=== PATIENT | male | born 1930 | race Caucasian/White ===

== ENCOUNTER → 2016-10-31 | Outpatient (CLI) | payer MEDICARE | END | disposition home or self-care (01) | LOC: PCVCCLINIC 15:48 | PROVIDERS: ATTEND Internal Medicine Cardiovascular Disease | DX: I25.10 Atherosclerotic heart disease of native coronary artery without angina pectoris (principal); I77.89 Other specified disorders of arteries and arterioles; I73.9 Peripheral vascular disease, unspecified; I25.5 Ischemic cardiomyopathy; E78.00 Pure hypercholesterolemia, unspecified; E78.5 Hyperlipidemia, unspecified; Z95.1 Presence of aortocoronary bypass graft; Z86.73 Personal history of transient ischemic attack (TIA), and cerebral infarction without residual deficits; Z87.891 Personal history of nicotine dependence; Z88.8 Allergy status to other drugs, medicaments and biological substances | CPT/HCPCS: 80061; 93005; G0463 ==

== ENCOUNTER → 2017-01-29 | Outpatient (CLI) | payer MEDICARE ==
[~2017-01-29] MED LIST: REGADENOSON 0.4 MG/5 ML DISP.SYRIN. IV ONE
--- NOTE | 2017-01-30 10:55 | PCVCIMAG ---
APPROVED REPORT Exam: Nuclear Stress Test Indication: CAD Patient Location: Out Patient Stress Nurse: Dayana Hernandez RN, Irais Medley RN ND Tech:Daniel Goel NMTCB Ht: 5 ft 6 in Wt: 129 lbs BSA: 1.66 m2 HR: 48 bpm BP: 191/74 mmHg BMI: 20.8 Rhythm: SB Medical History Medical History: Age, Hyperlipidemia, PVD, Former Smoker Medications: Amlodipine, Plavix, Proscar, Keppra, Rosuvastatin Allergies: Compazine Previous Cardiac Procedures: CABG 1993, PCI 2006 Exercise History: Sedentary NM EXAM: Myocardial Perfusion REST/STRESS Imaging Protocol: Rest Tc-99m/Stress Tc-99m 1 day Resting Data Rest SPECT myocardial perfusion imaging was performed in supine position 45 minutes following the intravenous injection of 8.5 mCi of Tc-99m Sestamibi. Time of rest injection: 08 Date: 01/29/2017 Pharmacologic Stress Pharmacologic stress test was performed by injecting Regadenoson 0.4 mg IV push followed by the intravenous injection of 25.7 mCi of Tc-99m Sestamibi. Time of stress injection: 1045 Date: 01/29/2017 The images were gated to evaluate regional wall motion and calculate left ventricular ejection fraction. Study Quality Study: Good Study Data Post stress, the left ventricular ejection was 49%.. SSS: 7 SRS: 5 SDS: 5 TID = 1.15. 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 Medium sized area of mild reversible ischemia involving the mid/apical inferolateral left ventricle consistent with a circumflex distribution. Wall Motion Minimally decreased left ventricular systolic function. 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 Medium sized area of mild reversible ischemia involving the mid/apical inferolateral left ventricle consistent with a circumflex distribution. Post stress, the left ventricular ejection was 49%.. Findings are similar to February 2014. Interpreted by: Damion Castellanos MD Electronically Approved: 01/30/2017 07:50:05 Stress Test Details Stress Test: Pharmacologic stress testing performed using 0.4 mg of regadenoson per 5 mL given IV over 10 seconds. Reason for pharmacologic stress test: physical limitation. HR Resting HR: 48 bpmMax Heart Rate (APMHR): 133 bpm Max HR Achieved: 78 bpmTarget HR (85% APMHR): 113 bpm % of APMHR: 58 Recovery HR: 70 bpm BP Resting BP: 191/74 mmHg Max BP: 187/74 mmHg ECG Resting ECG: Sinus Bradycardia Stress ECG: Sinus Rhythm, LBBB Recovery ECG: Sinus Rhythm, LBBB Clinical Reason for Termination: Completed protocol Stress Symptoms: Dyspnea, Lightheaded Symptoms resolved with caffeine. Nurse Comments Pt did not tolerate camera for images well, c/o back discomfort afterwards. Tylenol given and massage of back. Stress ECG Conclusion ECG: Non-ischemic <Conclusion> ECG: Non-ischemic
== END | disposition home or self-care (01) ==
LOC: PCVCIMAG 08:48
PROVIDERS: ATTEND Internal Medicine Cardiovascular Disease
DX: I44.7 Left bundle-branch block, unspecified (principal); I65.23 Occlusion and stenosis of bilateral carotid arteries; R00.1 Bradycardia, unspecified; E78.5 Hyperlipidemia, unspecified; K52.9 Noninfective gastroenteritis and colitis, unspecified; I73.9 Peripheral vascular disease, unspecified; Z87.891 Personal history of nicotine dependence; Z79.899 Other long term (current) drug therapy; Z88.8 Allergy status to other drugs, medicaments and biological substances; Z95.1 Presence of aortocoronary bypass graft; Z86.73 Personal history of transient ischemic attack (TIA), and cerebral infarction without residual deficits
CPT/HCPCS: 78452; 93017; 93880; A9500; J2785

== ENCOUNTER → 2017-08-02 | Outpatient (CLI) | payer MEDICARE | END | disposition home or self-care (01) | LOC: PCVCCLINIC 12:22 | DX: I25.10 Atherosclerotic heart disease of native coronary artery without angina pectoris (principal); I10 Essential (primary) hypertension; R09.89 Other specified symptoms and signs involving the circulatory and respiratory systems; G45.9 Transient cerebral ischemic attack, unspecified; I73.9 Peripheral vascular disease, unspecified; I25.5 Ischemic cardiomyopathy; E78.00 Pure hypercholesterolemia, unspecified; R94.31 Abnormal electrocardiogram [ECG] [EKG]; Z95.1 Presence of aortocoronary bypass graft; Z87.891 Personal history of nicotine dependence; Z79.899 Other long term (current) drug therapy | CPT/HCPCS: 80061; 93005; G0463 ==

== ENCOUNTER → 2018-02-04 | Outpatient (CLI) | payer MEDICARE ==
--- NOTE | 2018-02-04 15:16 | PCVCIMAG ---
EXAM: BILATERAL CAROTID DUPLEX INDICATION: Carotid Occlusive Disease. FINDINGS: Doppler Measurements (centimeters per second): RIGHT: Peak CCA-91, Peak ECA-175, Diastolic ICA-52, Peak ICA-279, ICA/CCA Ratio-3.1. LEFT: Peak CCA-94, Peak ECA-233, Diastolic ICA-24, Peak ICA-183, ICA/CCA Ratio-1.9. RIGHT CAROTID: The carotid bulb has moderate plaque. The proximal internal carotid artery shows 70% stenosis. The common carotid artery shows no significant stenosis. The external carotid artery shows 50% stenosis. LEFT CAROTID: The carotid bulb has mild plaque. The proximal internal carotid artery shows 50% stenosis. The common carotid artery shows no significant stenosis. The external carotid artery shows 70% stenosis. Antegrade flow in both vertebral arteries. IMPRESSION: 70% stenosis of the right internal carotid artery with moderate plaque. 50% stenosis of the left internal carotid artery with mild plaque. No change since 2017 study. LOC:[id number]
== END | disposition home or self-care (01) ==
LOC: PCVCIMAG 16:32
PROVIDERS: ATTEND Internal Medicine Cardiovascular Disease
DX: I65.23 Occlusion and stenosis of bilateral carotid arteries (principal); R09.89 Other specified symptoms and signs involving the circulatory and respiratory systems; I25.10 Atherosclerotic heart disease of native coronary artery without angina pectoris; I77.9 Disorder of arteries and arterioles, unspecified; I73.9 Peripheral vascular disease, unspecified; R07.9 Chest pain, unspecified; I25.5 Ischemic cardiomyopathy; I10 Essential (primary) hypertension; E78.00 Pure hypercholesterolemia, unspecified; R00.1 Bradycardia, unspecified; G31.84 Mild cognitive impairment of uncertain or unknown etiology; Z95.1 Presence of aortocoronary bypass graft; Z87.891 Personal history of nicotine dependence; Z79.899 Other long term (current) drug therapy
CPT/HCPCS: 80061; 93005; 93880; G0463

== ENCOUNTER → 2018-02-19 | Outpatient (CLI) | payer MEDICARE ==
--- NOTE | 2018-02-19 16:01 | PCVCIMAG ---
APPROVED REPORT Study performed: 02/19/2018 10:49:21 EXAM: Comprehensive 2D, Doppler, and color-flow Echocardiogram Patient Location: Echo lab Status: routine BSA: 1.69 HR: 46 bpmBP: 144/68 mmHg Rhythm: Bradycardia Other Information Study Quality: Adequate Indications Abnormal ECG CAD Chest Pain ischemic cardiomyopathy 2D Dimensions IVSd: 13.17 (7-11mm)LVOT Diam: 21.03 (18-24mm) LVDd: 52.37 mm PWd: 12.51 (7-11mm)Ascending Ao: 35.64 (22-36mm) LVDs: 42.88 (25-40mm) Left Atrium: 41.46 (27-40mm) Aortic Root: 30.80 mm LV Single Plane 4CH: 34.13 % LV Single Plane 2CH: 35.73 % Biplane EF: 36.7 % Volumes Left Atrial Volume (Systole) Single Plane 4CH: 63.65 mLSingle Plane 2CH: 68.69 mL LA ESV Index: 43.00 mL/m2 Aortic Valve AoV Peak Nikos.: 1.88 m/s AO Peak Gr.: 14.66 mmHgLVOT Max P.66 mmHg LVOT Max V: 0.81 m/s SERGIO Vmax: 1.51 cm2 AI Vmax: 3.38 m/s AI [place]: 1.32 m/s2 AI PHT: 744.93 ms Mitral Valve E/A Ratio: 0.8 MV Decel. Time: 267.93 ms MV E Max Nikos.: 0.67 m/s MV A Nikos.: 0.84 m/s MV PHT: 77.70 ms IVRT: 152.25 ms Pulmonary Valve PV Peak Nikos.: 0.99 m/sPV Peak Gr.: 3.96 mmHg Pulmonary Vein P Vein S: 0.30 m/sP Vein A: 0.26 m/s P Vein D: 0.38 m/sP Vein A Dur.: 179.9 msec P Vein S/D Ratio: 0.79 Tricuspid Valve TR Peak Nikos.: 2.56 m/s TR Peak Gr.: 26.22 mmHg Left Ventricle The left ventricle is normal size. Basal inferior akinesis with inferior and inferolateral hypokinesis. Mild concentric left ventricular hypertrophy. Left ventricular systolic function is mild to moderately decreased. LVEF is 40%. Grade I - abnormal relaxation pattern. Right Ventricle The right ventricle is normal size. The right ventricular systolic function is normal. Atria Left atrium is moderately dilated. Right atrium is mildly dilated. Aortic Valve The Aortic valve is sclerotic. Mild aortic regurgitation. There is no aortic valvular stenosis. Mitral Valve The mitral valve is normal in structure. Mild to moderate mitral regurgitation. No evidence of mitral valve stenosis. Tricuspid Valve The tricuspid valve is normal in structure. Mild tricuspid regurgitation with PAP of 33 mmHg. Pulmonic Valve The pulmonary valve is normal in structure. Moderate pulmonic regurgitation. Great Vessels The aortic root is normal in size. IVC is normal in size and collapses >50% with inspiration. Pericardium There is no pericardial effusion. There is no pleural effusion. <Conclusion> The left ventricle is normal size. Left ventricular systolic function is mild to moderately decreased. Basal inferior akinesis with inferior and inferolateral hypokinesis. LVEF is 40%. Grade I - abnormal relaxation pattern. Left atrium is moderately dilated. Right atrium is mildly dilated. Mild aortic regurgitation. Mild to moderate mitral regurgitation. Mild tricuspid regurgitation with PAP of 33 mmHg. Moderate pulmonic regurgitation. There is no pericardial effusion.
--- NOTE | 2018-02-24 18:24 | PCVCIMAG ---
APPROVED REPORT Imaging Protocol: Rest Tc-99m/Stress Tc-99m 1 day Study performed: 02/19/2018 12:57:34 Indication: CAD , Chest pain, Ischemic Cardiomyopathy Patient Location: Out-Patient Stress Nurse: Dayana Hernandez RN CT Tech:Soila Batres [facility] Ht: 5 ft 7 in Wt: 131 lbs BSA: 1.69 m2 HR: 63 bpm BP: 161/71 mmHg BMI: 20.5 Rhythm: Sinus Bradycardia Medical History Medical History: HTN, Hyperlipidemia, CAD, PVD, Former Smoker Medications: Amlodipine, Plavix, Proscar, Keppra, Losartan, Crestor Allergies: Compazine Cardiac Risk Factors: Age Pretest Chest Pain Characteristics: No chest pain Exercise History: Sedentary Physical Disabilities: Severe Kyphosis Resting Data Rest SPECT myocardial perfusion imaging was performed in supine position 45 minutes following the intravenous injection of 10.3 mCi of Tc-99m Sestamibi. Time of rest injection: 1230 Date: 02/19/2018 Administration Route: IV Administration Site: Right AC Pharmacologic Stress Pharmacologic stress test was performed by injecting Regadenoson 0.4 mg IV push over 10-15 seconds immediately followed by the intravenous injection of 31.4 mCi of Tc-99m Sestamibi. Time of stress injection: 1340 Date: 02/19/2018 Administration Route: IV Administration Site: Right AC Gated Stress SPECT was performed 45 minutes after stress injection. The images were gated to evaluate regional wall motion and calculate left ventricular ejection fraction. Stress Test Details Stress Test: Pharmacologic stress testing performed using 0.4 mg of regadenoson per 5 mL given IV over 10 seconds. Reason for pharmacologic stress test: Kyphosis, general debility. HRMax Heart Rate (APMHR): 132 bpm Resting HR: 63 bpmTarget HR (85% APMHR): 112 bpm Max HR Achieved: 85 bpm % of APMHR: 64 Recovery HR: 69 bpm BP Resting BP: 161/71 mmHg Recovery BP: 129/59 mmHg ECG Resting ECG: Sinus Bradycardia Stress ECG: Sinus Rhythm Recovery ECG: Sinus Rhythm Clinical Reason for Termination: Completed protocol, Completed protocol Stress Symptoms: Dyspnea Exercise duration: 0 min 55 sec Symptoms resolved with caffeine. Stress ECG Conclusion ECG: Non-ischemic Study Quality Study: Good Study Data Post stress, the left ventricular ejection was 32%.. SSS: 15 SRS: 17 SDS: 8 TID = 1.29. Perfusion Medium sized area of moderate reversible ischemia involving the mid/apical anterior left ventricle consistent with a left anterior descending distribution. Wall Motion Moderately severe decreased left ventricular systolic function. Nuclear Conclusion Medium sized area of moderate reversible ischemia involving the mid/apical anterior left ventricle consistent with a left anterior descending distribution has developed since January 2017. Post stress, the left ventricular ejection was 32%. Interpreted by: Damion Castellanos MD Electronically Approved: 02/19/2018 17:30:27 <Conclusion> ECG: Non-ischemic
== END | disposition home or self-care (01) ==
LOC: PCVCIMAG 12:29
PROVIDERS: ATTEND Internal Medicine Cardiovascular Disease
DX: I08.3 Combined rheumatic disorders of mitral, aortic and tricuspid valves (principal); I25.10 Atherosclerotic heart disease of native coronary artery without angina pectoris; I10 Essential (primary) hypertension; R00.1 Bradycardia, unspecified; I25.5 Ischemic cardiomyopathy
CPT/HCPCS: 78452; 93017; 93306; A9500; J2785

== ENCOUNTER → 2018-02-28 | Outpatient (CLI) | payer MEDICARE ==
[~2018-02-28] MED LIST changes: +ACETAMINOPHEN 500 MG TABLET PO ONE; +HEPARIN for ARTERIAL LINE 1,500 ML ONE; +HEPARIN for SUB-Q USE 5,000 UNIT/ML VIAL. SQ ONE; +IOHEXOL 350 MG/ML 100 ML VIAL. ONE; +IV NORMAL SALINE 1000ML BAG 1,000 ML ONE; +LIDOCAINE 1%/EPI 1:100,000 20 ML VIAL. ONE; +MIDAZOLAM HCL/PF 2 MG/2 ML VIAL. ONE; -REGADENOSON 0.4 MG/5 ML DISP.SYRIN. IV ONE; +diazePAM 5 MG TABLET ONE; +fentaNYL PF VIAL 100 MCG/2 ML VIAL ONE
--- NOTE | 2018-02-28 15:09 | PCVCINTER ---
EXAM: 1. AORTOGRAM AND BILATERAL ILIOFEMORAL ANGIOGRAM 2. BILATERAL RENAL ANGIOGRAPHY 3. LEFT RENAL ARTERY STENT PLACEMENT. INDICATION: Peripheral arterial disease. Coronary artery disease. Leg pain. Uncontrolled Hypertension. Renal atherosclerosis. No prior catheter based angiographic study is available. A full diagnostic angiogram study is performed today and the decision to intervene is based on this diagnostic study. PROCEDURE: Procedure and risks of angiography intervention is appropriate including limb loss stroke and were discussed with the patient's family and consent obtained. The patient's right groin was prepped in the normal sterile fashion. IV conscious sedation was used throughout procedure with appropriate monitoring from 11:00 AM through 12:00 PM. Ultrasound was used to interrogate the right groin and showed the right common femoral artery to be patent. A permanent spot film was obtained. Under ultrasound guidance access into the right common femoral artery was obtained and a 5 [place] sheath was placed. Through this a 5 [place] flush catheter was placed into the abdominal aorta at the level of the renal arteries and AP aortogram was performed. Catheter was positioned at the aortic bifurcation and bilateral iliofemoral angiogram obtained. Catheter was exchanged for a visceral catheter was placed into the right renal arteries and right renal angiograms obtained. Catheter was placed into the the left renal arteries and left renal angiograms were obtained. Patient was given 4500 units of heparin. Stent placement across the areas of high-grade stenosis in the left renal artery was carried out with a 6 x 15 [place] blue stent with subsequent dilatation to 6.[address] Min then joined the procedure and he performed coronary angiography. Please see his separate dictation for full details. Catheters and wires removed. Sheath was removed and hemostasis obtained using the FISH device. No immediate complications. FINDINGS: Aortogram: There is one right and one left renal artery. Moderate atheromatous and calcific changes infrarenal abdominal aorta without significant stenosis. Iliofemoral angiography: The right and left common iliac arteries show moderate plaque without flow-limiting stenosis. Both internal iliac arteries show mild stenoses. The right and left external iliac arteries are patent. Moderate plaque in the right and left common femoral arteries without critical stenosis. The right and left profunda femoral arteries and visualized upper superficial femoral arteries maintaining satisfactory patency. Right renal artery: Minimal plaque proximal vessel does not cause significant stenosis. Left renal artery: Moderate plaque proximal vessel causes 90% stenosis. No branch vessel stenosis. Left renal artery: Following procedure as above vessel shows good patency. IMPRESSION: 90% left renal artery stenosis was treated with stent placement with good patency restored. No flow limiting aortoiliac or iliofemoral stenosis seen. LOC:[id number]
--- NOTE | 2018-03-18 17:06 | PCVCINTER ---
APPROVED REPORT Study performed: 02/28/2018 11:50:00 Patient Details Patient Status: Out-Patient Room #: 2 The patient is a 87 year-old Male Event Personnel Pako Posadas MD, Alexis Granados RT(R), Richie Reyes RN, Marine Jimenez RT(R)() Risk Factors Arterial HypertensionDysplipidemia (Type: 1), Cerebrovascular DiseasePeripheral Vascular Disease, Hypercholesterolemia, Tobacco History (Former) Previous Procedures/Diagnoses Previous CABGPrevious PCI, Previous CHF, CAD, CHF, Cerebrovascular disease, Hypertension, Arrhythmias - Sinus Node->Sinus bradycardia Procedure Narrative The patient was brought electively to the Cardiac Catheterization Laboratory and was prepped and draped in a sterile manner. The right coronary system was accessed and visualized with a JR4 catheter. The left coronary system was accessed and visualized with a JL4 catheter. An aortogram of the ascending aorta was performed. Closure device was deployed with a 6 Fr FISH. Hemostasis was obtained with manual pressure following sheath removal without any complications. The patient tolerated the procedure well and there were no complications associated with the procedure. There was no hematoma. Hemodynamics The aortic pressure is 141/43 mmHg with a mean of mmHg. Conclusion #1 supravalvular aortogram revealing normal caliber aorta with 1+ aortic insufficiency. Appears to be a patent vein graft although the proximal aorta #2 small left main giving rise to LAD within occludes. Only significant filling is a small septal roll tension tester circumflex essentially occluded proximally #3 dominant right coronary artery occluded #4 SVG to an OM is widely patent with mild irregularities moderate size OM system is filled briskly. #5 the CUELLAR to LAD is intact provides some brisk filling of the LAD with mild disease and then some collateral filling to the inferior wall is noted #6 SVG to the PDA is occluded Recommendations and plan would continue aggressive risk factor modification. There is no indication for any coronary intervention. Close follow-up will be arranged. Stable angina certainly could be expected
== END | disposition home or self-care (01) ==
LOC: PCVCINTER 09:55
PROVIDERS: ATTEND Internal Medicine Cardiovascular Disease
DX: I70.1 Atherosclerosis of renal artery (principal); I35.1 Nonrheumatic aortic (valve) insufficiency; I25.10 Atherosclerotic heart disease of native coronary artery without angina pectoris; I70.0 Atherosclerosis of aorta; I70.293 Other atherosclerosis of native arteries of extremities, bilateral legs; I11.0 Hypertensive heart disease with heart failure; I50.9 Heart failure, unspecified; N40.0 Benign prostatic hyperplasia without lower urinary tract symptoms; Z95.1 Presence of aortocoronary bypass graft; Z87.891 Personal history of nicotine dependence; Z85.038 Personal history of other malignant neoplasm of large intestine; Z86.73 Personal history of transient ischemic attack (TIA), and cerebral infarction without residual deficits; Z90.49 Acquired absence of other specified parts of digestive tract; Z98.890 Other specified postprocedural states; Z82.3 Family history of stroke; Z88.8 Allergy status to other drugs, medicaments and biological substances; Z79.899 Other long term (current) drug therapy
CPT/HCPCS: 36252; 37236; 75630; 76937; 93455; 93567; 99152; 99153; C1725; C1751; C1760; C1769; C1876; C1887; C1894; J0690; J1644; J2250; J3010; J3490; J7030; Q9967; 93458

== ENCOUNTER → 2018-06-23 | Outpatient (CLI) | payer MEDICARE ==
--- NOTE | 2018-06-23 09:37 | PCVCIMAG ---
EXAM: BILATERAL RENAL ULTRASOUND AND BILATERAL RENAL DUPLEX INDICATION: Hypertension. Previous left renal artery stent. FINDINGS: Right kidney: Length measures 10.0 cm. No hydronephrosis or extensive renal scarring. Right renal duplex: Adequate technical quality. No sonographic evidence of renal artery stenosis. The aortic to renal artery ratio is 1.4. The renal vein is patent. Left kidney: Length measures 10.0 cm. No hydronephrosis or extensive renal scarring. Left renal duplex: Adequate technical quality. No sonographic evidence of renal artery stenosis. The aortic to renal artery ratio is 1.1. The renal vein is patent. Bladder: No obvious abnormalities. IMPRESSION: No significant renal artery stenosis. No hydronephrosis bilaterally. Previous left renal artery stent maintaining good patency. LOC:[id number]
== END | disposition home or self-care (01) ==
LOC: PCVCIMAG 08:32
PROVIDERS: ATTEND Nuclear Medicine Nuclear Cardiology
DX: I10 Essential (primary) hypertension (principal); I70.1 Atherosclerosis of renal artery; I73.9 Peripheral vascular disease, unspecified; I25.10 Atherosclerotic heart disease of native coronary artery without angina pectoris; I77.9 Disorder of arteries and arterioles, unspecified; N28.9 Disorder of kidney and ureter, unspecified; E78.00 Pure hypercholesterolemia, unspecified; Z87.891 Personal history of nicotine dependence; Z79.899 Other long term (current) drug therapy
CPT/HCPCS: 76770; 93975; G0463

== ENCOUNTER → 2018-09-02 | Outpatient (CLI) | payer MEDICARE ==
--- NOTE | 2018-09-02 14:22 | PCVCIMAG ---
APPROVED REPORT Indications Stenosis Risk Factors TIA/CVA History CAD Surgery/Intervention Endarterectomy: left Doppler Spectral Velocity Analysis PSV / EDVPSV / EDV ECA (R) 299 / 19 cm/sECA (L) 109 / 5 cm/s dICA (R) 73 / 12 cm/sdICA (L) 70 / 13 cm/s Ad (R) 190 / 19 cm/smICA (L) 100 / 9 cm/s pICA (R) 254 / 31 cm/spICA (L) 169 / 0 cm/s Bulb (R) 82 / 9 cm/sBulb (L) 141 / 0 cm/s dCCA (R) 79 / 9 cm/sdCCA (L) 102 / 10 cm/s mCCA (R) 83 / 9 cm/smCCA (L) 98 / 13 cm/s Vert (R) 58 / 0 cm/sVert (L) 52 / 10 cm/s ICA/CCA 1.66 ICA/CCA 3.04 Basic Measurements Blood Pressure: Pulses: Right Left RightLeft Brachial(Sitting) 104/15ocVf70/48mmHgTemporal Real Time B-Mode Imaging Vert. (R)AntegradeVert. (L)Antegrade Findings The right carotid bulb has moderately severe calcified plaque. The right proximal internal carotid artery shows 70-80% stenosis. The right common carotid artery shows no significant stenosis. The right external carotid artery shows >50% stenosis. The left carotid bulb has moderate plaque. The left proximal internal carotid artery shows 40-50% stenosis. The left common carotid artery shows no significant stenosis. The left external carotid artery shows no significant stenosis. Conclusion 1. Right internal carotid artery stenosis (70-80%). 2. Left internal carotid artery stenosis (40-50%). 3. Antegrade vertebral flow
== END | disposition home or self-care (01) ==
LOC: PCVCIMAG 13:30
PROVIDERS: ATTEND Internal Medicine Cardiovascular Disease
DX: I65.23 Occlusion and stenosis of bilateral carotid arteries (principal); I25.10 Atherosclerotic heart disease of native coronary artery without angina pectoris; R55 Syncope and collapse; R42 Dizziness and giddiness; E78.00 Pure hypercholesterolemia, unspecified; G31.84 Mild cognitive impairment of uncertain or unknown etiology; Z86.73 Personal history of transient ischemic attack (TIA), and cerebral infarction without residual deficits; Z95.1 Presence of aortocoronary bypass graft
CPT/HCPCS: 36415; 80061; 93005; 93880; G0463

== ENCOUNTER → 2018-10-29 | Outpatient (CLI) | payer MEDICARE | END | disposition home or self-care (01) | LOC: PCVCCLINIC 15:00 | PROVIDERS: ATTEND Internal Medicine Cardiovascular Disease | DX: I25.118 Atherosclerotic heart disease of native coronary artery with other forms of angina pectoris (principal); E78.00 Pure hypercholesterolemia, unspecified; I25.5 Ischemic cardiomyopathy; I73.9 Peripheral vascular disease, unspecified; I10 Essential (primary) hypertension; I70.1 Atherosclerosis of renal artery; I65.23 Occlusion and stenosis of bilateral carotid arteries; Z87.891 Personal history of nicotine dependence; Z88.8 Allergy status to other drugs, medicaments and biological substances | CPT/HCPCS: 36415; 80061; 93005; G0463 ==